=== PATIENT | male | born 1960 | race Caucasian/White ===

== ENCOUNTER → 2017-03-29 10:56 | Outpatient (CLI) | payer OTHER ==
[~2017-03-29] VITALS: Ht 170.2 cm; Wt 64.5 kg
--- NOTE | ~2017-03-29 | HEMODYNAMI ---
PATIENT:LARISSA HALL MEDICAL RECORD: [id number] : 64 LOCATION:[facility] ADMISSION DATE: 03/29/17 Generatedon:03/29/201713:52 Patient name: LARISSA HALL Patient #: [id number] SSN: DO B: 1960 Date of study: 03/29/2017 Page: Of Hemodynamic Procedure Report Patient Data Patient Demographics Procedure consent was obtained First Name: LARISSA Gender: Male Last Name: RAFAEL : 1960 Middle Initial: EDWARD Age: 56 year(s) Patient #: [id number] Race: Unknown Additional ID: [id number] Contact details [address]: [address] [place] [address] State: [place] City: [place] Zip code: [address] Admission Admission Data Admission Date: 03/29/2017 Admission Time: 10:56 Procedure Procedure Types Cath Procedure Diagnostic Procedure LHC LHC w/Coronaries Miscellaneous Procedures Moderate Sedation up to 15 minutes Procedure Description Procedure Date Procedure Date: 03/29/2017 Procedure Start Time: 13:41 Procedure End Time: 13:52 Procedure Staff Name Function Juan Francisco Wing MD Performing Physician Gerard Hua RT Scrub Hillary Hartmann RN Nurse Mat Kincaid RT Monitor Procedure Data Cath Procedure Fluoroscopy Diagnostic fluoroscopy Total fluoroscopy Time: 1.3 time: 1.3 min min Diagnostic fluoroscopy Total fluoroscopy dose: 260 dose: 260 mGy mGy Contrast Material Contrast Material Type Amount (ml) Isovue 300 62 Entry Location Entry Primary Successful Side Size Upsize Upsize Entry Closure Hoffmann ccessful Closure Location (Fr) 1 (Fr) 2 (Fr) Remarks Device Remarks Radial Right 6 Fr Mechanical artery Short Compression Estimated blood loss: 10 ml Diagnostic catheters Device Type Used For End Catheter Placement Diagnostic Terumo 5Fr Procedure [place] [employer] 110cm catheter Procedure Complications No complications Procedure Medications Medication Administration Route Dosage Zofran I.V. 4 mg Oxygen NC 2 l/min Heparin Flush Bag added to field 2 bags (1000units/500ml NS) Lidocaine 2% added to field 20 Radial Cocktail added to field 1 syringe (Verapomil 2mg/Nitro 400mcg/Heparin 1500units) Versed I.V. 1 mg Fentanyl I.V. 50 mcg Versed I.V. 1 mg Fentanyl I.V. 50 mcg Radial Cocktail I.A. 1 syringe (Verapomil 2mg/Nitro 400mcg/Heparin 1500units) Versed I.V. 0.5 mg Fentanyl I.V. 50 mcg Hemodynamics Rest Heart Rate: 98 (bpm) Pressure Samples Time Site Value (mmHg) Purpose Heart Use Rate(bpm) 13:43 LV 143/-9,5 Snapshot 86 13:44 AO 123/75(91) Pullback 85 13:44 LV 138/-12,8 Pullback 85 Gradients Valve Time Site 1 Site 2 Mean SEP/DFP Peak To Heart Use (mmHg) (sec/min) Peak Rate (mmHg) (bpm) Aortic 13:44 LV AO 15 8 15 85 138/-12,8 123/75(91) Calculations Valve P-P Mean Valve Index Valve Source Name Gradient Area Flow (cm2) Aortic 15 15 15 15 Snapshots Pre Cath Intra NCS Post Cath Vital Signs Time Heart Resp SPO2 NIBP (mmHg) Rhythm Pain Sedation Rate (ipm) (%) Status Level (bpm) 13:25:02 96 18 98 153/94(127) NSR 0 (11) 10(A) , No pain 13:29:16 87 11 97 155/95(127) NSR 0 (11) 10(A) , No pain 13:33:32 75 16 99 144/93(122) NSR 0 (11) 10(A) , No pain 13:37:44 76 12 98 144/89(124) NSR 0 (11) 10(A) , No pain 13:41:58 76 15 97 132/85(100) NSR 0 (11) 9(A) , No pain 13:46:07 87 15 95 118/76(91) NSR 0 (11) 9(A) , No pain 13:49:08 81 12 95 124/78(100) NSR 0 (11) 9(A) , No pain Medications Time Medication Route Dose Verified Delivered Reason Notes Effectiveness by by 13:13:02 Zofran I.V. 4 mg Juan Francisco Lemusca Per pt [facility] Soren Hartmann RN physician reports MD nausea 13:23:59 Oxygen NC 2 l/min Juan Francisco Hillary Per [facility] Soren Hartmann RN physician MD 13:24:08 Heparin Flush added 2 bags Juan Francisco Juan Francisco used for Bag to Maciej Sawpit procedure (1000units/500ml field MD JONES NS) 13:24:15 Lidocaine 2% added 20ml Juan Francisco Juan Francisco used for to vial Maciej Sawpit procedure field MD JONES 13:24:22 Radial Cocktail added 1 Juan Francisco Juan Francisco used for (Verapomil to syringe Maciej Maciej procedure 2mg/Nitro field MD JONES 400mcg/Heparin 1500units) 13:34:37 Versed I.V. 1 mg Juan Francisco Hillary for sedation [facility]. Soren Hartmann RN, MD 13:34:46 Fentanyl I.V. 50 mcg Juan Francisco Hillary for sedation [facility]. Soren Hartmann RN, MD 13:36:41 Versed I.V. 1 mg Juan Francisco Hillary for sedation [facility]. Soren Hartmann RN, MD 13:36:44 Fentanyl I.V. 50 mcg Juan Francisco Hillary for sedation [facility]. Soren Hartmann RN, MD 13:40:30 Versed I.V. 0.5 mg Juan Francisco Hillary for sedation [facility]. Soren Hartmann RN, MD 13:40:39 Fentanyl I.V. 50 mcg Juan Francisco Hillary for sedation St. Soren Hartmann RN, MD 13:41:50 Radial Cocktail I.A. 1 Juan Francisco Juan Francisco for (Verapomil syringe Maciej Sawpit vasodilation 2mg/Nitro MD JONES 400mcg/Heparin 1500units) Procedure Log Time Note 12:50:16 Gerard Hua RT(R) sent for patient. Start room use. 13:04:12 ACC Patient presents with Stable Angina CCS Anginal Class 2--Slight limitation of ordinary activity. 13:04:14 Diagnostic Cath status Elective 13:04:27 Time tracking: Regular hours 13:04:32 Plan of Care:Hemodynamics will remain stable., Cardiac rhythm will remain stable., Comfort level will be maintained., Respiratory function will remain adequate., Patient/ family verbilizes understanding of procedure., Procedure tolerated without complication., Recovers from procedure without complications.. 13:10:19 Correct patient and procedure confirmed by team. 13:10:19 Warm blankets applied, and mary hugger turned on for patient comfort. 13:10:21 ECG and BP/O2 sat monitors applied to patient. 13:10:21 Signed procedure consent form obtained from patient. 13:10:50 Patient received from Pre/Post Procedure Room to CCL 2 Alert and oriented. Tansferred to table in Supine position. 13:13:02 Zofran 4 mg I.V. was administered by Hillary Hartmann RN; Per physician; pt reports nausea 13:23:55 Vital chart was started 13:23:59 Oxygen 2 l/min NC was administered by Hillary Hartmann RN; Per physician; 13:24:08 Heparin Flush Bag (1000units/500ml NS) 2 bags added to field was administered by Juan Francisco Wing MD; used for procedure; 13:24:15 Lidocaine 2% 20ml vial added to field was administered by Juan Francisco Wing MD; used for procedure; 13:24:22 Radial Cocktail (Verapomil 2mg/Nitro 400mcg/Heparin 1500units) 1 syringe added to field was administered by Juan Francisco iWng MD; used for procedure; 13:26:02 Baseline sample Acquired. 13:26:09 Rhythm: sinus rhythm 13:26:15 Full Disclosure recording started 13:31:40 H&P Date Dictated: 03/17/2017 Within 30 days and on chart., H&P Addendum completed by physician on day of procedure. (MUST COMPLETE FOR ALL OUTPATIENTS). 13:31:41 Pre-procedure instructions explained to patient. 13:31:41 Pre-op teaching completed and patient verbalized understanding. 13:32:06 Family in patients room. 13:32:08 Patient NPO since Midnight. 13:32:10 Is the patient allergic to Iodine/contrast media? No. 13:32:12 Is patient on blood thinner?Yes 13:32:14 ACC The patient was administered the following blood thiners within the last 24 hours: ACCEffient 13:32:20 Patient diabetic? No. 13:32:22 Previous problem with sedation/anesthesia? No ? 13:32:22 Snore? Yes 13:32:23 Sleep apnea? No 13:32:24 Deviated septum? No 13:32:25 Opens mouth fully? Yes 13:32:26 Sticks out tongue? Yes 13:32:28 Airway obstruction? No ? 13:32:30 Dentures? No ? 13:32:34 Pre procedure: right dorsailis pedis pulse 1+ Palpable, but thready & weak; easily obliterated 13:32:37 Modified Tj's test Ulnar < 7 seconds 13:32:40 Patient pain scale 0/10 ?. 13:32:46 IV patent on arrival in left forearm with 0.9% NaCl at [facility]. 13:32:49 Lab results completed and on chart. 13:32:53 Right Radial & Right Groin area was prepped with chlora-prep and draped in sterile fashion 13:32:54 Alarms reviewed by R. N. 13:32:54 Sharps counted by scrub and verified by R.N. 13:34:23 --------ALL STOP TIME OUT------ 13:34:23 Final Timeout: patient, procedure, and site verified with staff and physician. All members of the team are in agreement. 13:34:28 Right Radial & Right Groin site verified by team. 13:34:31 Physical assessment completed. ASA score P 2 - A patient with mild systemic disease as per Juan Francisco Wing MD. 13:34:34 Sedation plan: IV Moderate Sedation Versed, Fentanyl 13:34:37 Versed 1 mg I.V. was administered by Hillary Hartmann RN; for sedation; 13:34:46 Fentanyl 50 mcg I.V. was administered by Hillary Hartmann RN; for sedation; 13:36:41 Versed 1 mg I.V. was administered by Hillary Hartmann RN; for sedation; 13:36:44 Fentanyl 50 mcg I.V. was administered by Hillary Hartmann RN; for sedation; 13:40:30 Versed 0.5 mg I.V. was administered by Hillary Hartmann RN; for sedation; 13:40:39 Fentanyl 50 mcg I.V. was administered by Hillary Hartmann RN; for sedation; 13:41:02 Use device set Radial Dx 13:41:05 Acist Hand Control opened to sterile field. 13:41:05 Acist Manifold opened to sterile field. 13:41:05 Tegaderm 4 x 4 opened to sterile field. 13:41:07 Acist Syringe opened to sterile field. 13:41:08 Medline Cath Pack opened to sterile field. 13:41:08 Bag Decanter opened to sterile field. 13:41:08 Terumo 6Fr Slender Glidesheath opened to sterile field. 13:41:09 St [employer] 260cm J .035 wire opened to sterile field. 13:41:09 MBrace Wrist Support opened to sterile field. 13:41:11 Zero performed for pressure channel P1 13:41:27 Procedure started. 13:41:31 Local anesthetic to right radial artery with Lidocaine 2% by Juan Francisco Wing MD.INITIAL ACCESS ONLY 13:41:49 A 6 Fr Short sheath was inserted into the Right Radial artery 13:41:50 Radial Cocktail (Verapomil 2mg/Nitro 400mcg/Heparin 1500units) 1 syringe I.A. was administered by Juan Francisco Wing MD; for vasodilation; 13:42:51 A Diagnostic Terumo 5Fr [place] [employer] 110cm catheter was advanced over the wire and used for Procedure. 13:43:23 LV angiography performed. 13:43:25 LV gram done using BENITEZ 13:43:44 EF : 55 % 13:43:46 LV hemodynamics recorded. 13:44:24 Injector settings: Ml/sec: 7, Volume: 15, 13:45:05 LCA angiography performed. 13:46:21 RCA angiography performed. 13:46:29 Catheter removed. 13:46:38 Terumo TR Band Standard opened to sterile field. 13:46:53 Sheath removed intact; hemostasis achieved with Mechanical Compression to the Right Radial artery. 13:48:05 Procedure ended.(Physican Out) 13:48:53 Fluoroscopy time 01.30 minutes. 13:48:57 Fluoroscopy dose: 260 mGy 13:48:57 Flurop Dose total: 260 13:49:01 Contrast amount:Isovue 300 62ml. 13:49:02 Sharps counted by scrub and verified by R.N. 13:49:05 TR band inflated with 12cc of air. 13:49:06 Insertion/operative site no bleeding no hematoma. 13:49:08 Post Procedure Pulses reassessed and unchanged 13:49:10 Post-procedure physical assessment completed. ASA score P 2 - A patient with mild systemic disease as per Juan Francisco Wing MD. 13:49:12 Post procedure rhythm: unchanged. 13:49:16 Estimated blood loss: 10 ml 13:49:17 Post procedure instruction explained to patient.Patient verbalizes understanding. 13:49:18 Patient needs reinforcement of post procedure teaching. 13:49:26 Procedure type changed to Cath procedure, Diagnostic procedure, LHC, LHC w/Coronaries, Miscellaneous Procedures, Moderate Sedation up to 15 minutes 13:49:29 Procedure Complication : No complications 13:49:51 Procedure and supply charges have been captured, reviewed, submitted and are correct. 13:51:50 Vital chart was stopped 13:51:51 See physician's report for complete and final results. 13:51:59 Report given to Pre/Post Procedure Room. 13:52:01 Patient transfered to Pre/Post Procedure Room with Stretcher. 13:52:04 Procedure ended. 13:52:04 Full Disclosure recording stopped 13:52:08 End room use (Document Last) Device Usage Item Name Manufacture Quantity Catalog Hospital Part Current Minimal Lot# / Number Charge Number Stock Stock Serial# Code Acist Hand Acist 1 [id number] [id number] 678226 705351 5 Control [employer] Inc Acist Acist 1 63235 584603 348041 401956 5 Manifold [employer] Inc Tegaderm 4 3M 1 1626W 669924 050996 129133 5 x 4 Acist Acist 1 70496 001640 197813 113248 20 Syringe Medical Systems Inc Medline Cardinal 1 [id number] 999919 04998 886226 5 Cath Pack Health Bag Microtek 1 2002S 454926 06112 558657 5 DecHello Chair [employer] Terumo 6Fr Terumo 1 [id number] 285969 237448 914385 [address] [employer] 1 697856 101288 810028 616210 30 260cm J .035 wire MBrace Advanced 1 [id number] 466654 12458 063735 5 Wrist Vascular Support Dynamics Diagnostic Terumo 1 27-4463 580978 005852 292382 5 Terumo 5Fr [place] [employer] 110cm catheter Terumo TR Terumo 1 [id number] 389069 624361 647685 40 Band Standard Signature Audit [place] Stage Time Signature Unsigned Intra-Procedure 03/29/2017 Mat Kincaid 1:52:28 PM RT(R) Signatures Monitor : Mat Kincaid RT Signature : Date : Time : [place] [address] [place] [address]
[~2017-03-29 10:56] MED LIST: BAYER CHEWABLE81 MG PO; BYSTOLIC5 MG PO; EFFIENT10 MG PO; FLOMAX0.4 MG PO; OMEPRAZOLE40 MG PO; PROSCAR5 MG PO
[2017-03-29 11:37] LABS: BASOPHILS 0.3 % (0-2); HEMATOCRIT 45.6 % (42.0-54.0); HEMOGLOBIN 16.2 g/dL (13.5-17.5); IMMATURE GRANULOCYTES 0.3 % (0-5); LYMPHOCYTES 21.8 % (15-50); MCH 33.8 pg (26.0-34.0); MCHC 35.5 g/dL (31.0-37.0); MCV 95.2 fL (80.0-100.0); MEAN PLATELET VOLUME 9.3 fL (7.4-10.4); MONOCYTES 8.9 % (2-11); NEUTROPHILS 66.7 % (40-80); PLATELET COUNT 176 10x3/uL (130-400); RBC 4.79 10x6/uL (4.20-6.10); RDW 11.9 % (11.5-14.5)
[2017-03-29 11:48] VITALS: BP 139/73; Ht 170.2 cm; Wt 64.5 kg
[2017-03-29 11:48] LABS: ANION GAP 10.5 mmol/L (8-16); CARBON DIOXIDE 26.4 mmol/L (21.0-32.0); CREATININE - SERUM 1.3 mg/dL (0.6-1.3); POTASSIUM - SERUM 3.9 mmol/L (3.5-5.1)
--- NOTE | 2017-03-29 14:45 | NUR ---
TR BAND INTACT, FAMILY AT SIDE, REFUSES SANDWICH AT THIS TIME
--- NOTE | 2017-03-29 16:00 | NUR ---
IV D'C WITH CATH TIP INTACT, TR BAND OFF WITH BANDAID APPLIED. BRACE TO RIGHT WRIST- INTACT. WRITTEN AND VERBAL INSTRUCTIONS GIVEN TO PT AND FAMILY. DENIES FURTHUR NEEDS.
--- NOTE | 2017-03-30 08:55 | OP ---
PATIENT NAME: LARISSA HALL MEDICAL RECORD: [id number] :64 LOCATION:[facility] ADMISSION DATE: SURGEON: AUSTIN RUSSELL MD DATE OF OPERATION: 03/29/2017 PROCEDURE: Left heart catheterization, selective coronary angiography, right radial approach. CATHETERS: A 5-Austrian sheath, 5/4 left and right Ezekiel, 5/4 pig. The procedure was well tolerated and the patient was returned to barreto. Sheath was removed and TR band was placed. FINDINGS: Left ventriculography in the 30-degree BENITEZ view: Normal wall motion, normal systolic function. CORONARY ANATOMY: LEFT MAIN: The left main is free of disease. LAD: Free of disease in the diagonal system. CIRCUMFLEX: Free of disease in the marginal system. RIGHT CORONARY ARTERY: Dominant artery, gives rise to PDA, large vessel, free of disease. IMPRESSION: Normal systolic function, normal coronary anatomy, noncardiac cause of chest pain, false positive treadmill stress test. TRANSINT:[id number] Voice Confirmation ID: [id number] DOCUMENT ID: [id number] AUSTIN RUSSELL MD at 0855 CC: [id number] DICTATION DATE: 03/29/17 1352 CREDIT VERIFICATION CLERK: 03/29/17 2236 [facility] CLI 03/29/17 [id number] [place] [address]
== END | disposition home or self-care (01) ==
LOC: D.CATH 03-28 13:00
PROVIDERS: Internal Medicine Interventional Cardiology
DX: R07.89 Other chest pain (principal)